=== PATIENT | female | born 1985 ===

== ENCOUNTER 2024-09-09 14:54 | Outpatient (REF) | payer OTHER, SELFPAY ==
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
--- OUTSIDE RECORDS SUMMARY | 2024-09-09 18:22 | XMS_ITS | Encounter Summary ---
Author Organization [employer] Address [address] [place] [address] Care Team Providers Care Barn Manager Name Role Phone Jannie Grover MD Primary Care Provide r Reason for Visit * Reason Comments Med Refill Encounter Details Date Type Department Care Team ([facility] st Contact Info) Description 06/08/2024 Refill [facility] [address] [place], [place] [phone] Jannie Grover MD [address] [place], [place] [phone] Primary hypertension Social History Tobacco Use Types Packs/Day Years Used Date Smoking Tobacco: Every Day Cigarettes Passive Smoke Exposure: Current Smokeless Tobacco: Never Alcohol Use Standard Drinks/Week Comments Yes 0 (1 standard drink = 0.6 oz pur e alcohol) oca Depression Answer Date Recorded Patient Health Questionnaire-9 Score 9 06/10/2023 Patient Health Questionnaire-9 Score 9 06/10/2023 Last PHQ-9: Questionnaire Data Not on file 1 08/10/2022 Housing Stability Answer Date Recorded What is your housing situation today? I have andrea keating 05/27/[address] you li ve. Do you have problems with any of the following? None of the above 05/27/2023 Food Insecurity Answer Date Recorded Within the past 12 months, y ou worried that your food would run out before you got money to buy more: Never True 05/27/2023 Within the past 12 months,th e food you bought just didn't last and you didn't have enough money to get more: Never True Transportation Answer Date Recorded In the past 12 months, has l ack of transportation kept you from medical appts, meetings, work or from getting things needed for daily living? No 05/27/2023 Utilities Answer Date Recorded In the past 12 months, has t he electric, gas, oil or water company threatened to shut off services in your home? No 05/27/2023 Depression Answer Date Recorded Patient Health Questionnaire-2 Score 2 06/10/2023 Internet Access Answer Date Recorded Internet Access Q1 Yes 04/08/2024 Internet Access Q2 Not on file 04/08/2024 Comments Unknown Sex and Gender Information Value Date Recorded Sex Assigned at Female 05/13/2022 10:14 AM EDT Legal Sex Female 10:14 AM EDT Gender Identity Female 05/13/2022 10:14 AM EDT Sexual Orientation Choose not to disclose 2021 10:14 AM EDT documented as of this encounter Plan of Treatment Upcoming Encounters Date Type Department Care Team (Late st Contact Info) Description 09/22/2024 10:15 AM EDT Office Visit [facility] [address] [place] [id number] Jannie Grover MD [address] [place] [phone] documented as of this encounter Visit Diagnoses Diagnosis Primary hypertension Unspecified essential hypertension documented in this encounter Additional Health Concerns Assessment Noted Time PHQ-9 Depression Total Score: 9 06/10/20 23 9:05 AM EST documented as of this encounter Care Teams Barn Manager Relationship Specialty Start Date End Date Jannie Grover MD [address] [place] [phone] PCP - General Family Medicine 08/24/20 documented as of this encounter
--- OUTSIDE RECORDS SUMMARY | 2024-09-09 18:22 | XMS_ITS | Encounter Summary ---
Author Organization [employer] Address [address] [place] [address] Care Team Providers Care Typing Teacher Name Role Phone Jannie Grover MD Primary Care Provide r Encounter Details Date Type Department Care Team (Late st Contact Info) Description 08/04/2024 Orders Only [facility] [address] [place] [address] Yesenia Miranda Social History Tobacco Use Types Packs/Day Years Used Date Smoking Tobacco: Every Day Cigarettes Passive Smoke Exposure: Current Smokeless Tobacco: Never Alcohol Use Standard Drinks/Week Comments Yes 0 (1 standard drink = 0.6 oz pur e alcohol) oca Depression Answer Date Recorded Patient Health Questionnaire-9 Score 9 06/16/2024 Patient Health Questionnaire-9 Score 9 06/16/2024 Last PHQ-9: Questionnaire Data Not on file 1 08/17/2023 Housing Stability Answer Date Recorded What is [...] Answer Date Recorded Patient Health Questionnaire-2 Score 4 06/16/2024 Internet Access Answer Date Recorded Internet Access [...] Description 09/22/2024 10:15 AM EDT Office Visit [facility] [address] [place], [place] [phone] Jannie Grover MD [address] [place] [address] documented as of this encounter Procedures Procedure Name Priority Date/Time Associated Diagnosis Comments PAP/HPV Routine 12/11/2023 12:00 AM EDT documented in this encounter Results * HM PAP/HPV (12/11/2023 12:00 AM EDT) Pap Smear 1. NILM 1. NILM HPV Not Detected Undetected, Indeterminat e, Quantitative , Not Detected Historical Provider HEALTH MAINTENANCE Edited Result - Final documented in this encounter Visit Diagnoses Not on filedocumented in this encounter Additional Health Concerns Assessment Noted Time PHQ-9 Depression Total Score: 9 06/16/20 24 11:29 AM EST documented as of this encounter Care Teams Typing Teacher Relationship Specialty Start Date End Date Jannie Grover MD [address] [place], [place] [phone] PCP - General Family Medicine 08/24/20 documented as of this encounter
--- OUTSIDE RECORDS SUMMARY | 2024-09-09 18:22 | XMS_ITS | Clinical Summary ---
Author Organization [employer] Address [address] [facility] 7t [place] [address] Care Team Providers Care Graphic Production Artist Name Role Phone Jannie Grover MD Primary Care Provide r Allergies Active Allergy Reactions Criticality Noted Date Comments Bee Venom 11/22/2019 Other reaction(s): Rash, Rash Penicillins Anaphylaxis High 01/20/2012 Medications * This document contains information received from the source organization and may not represent a complete record from that organization. EPINEPHrine (Epipen) 0.3 MG/0.3ML injection syringeIndicatio ns:Allergy to bee sting Inject 0.3 mL (0.3 mg) as directed 1 (one) time if needed for anaphylaxis for up to 2 doses. Inject into upper leg. Call 911 after use. 1 each 1 10/15/19 24 Active cholecalciferol (Vitamin D-3) 25 MCG (1000 UT) tabletIndication s:Vitamin D deficiency Take 1 tablet (25 mcg) by mouth in the morning. 60 tablet 1 10/15/19 24 Active Blood Pressure Monitoring (Blood Pressure Cuff) miscIndications: Temporary high blood pressure 1 each Once daily. 1 each 10/15/19 24 Active Semaglutide-Weig ht Management (Wegovy) 0.25 MG/0.5ML solution auto-injectorInd ications:Class 3 severe obesity due to excess calories with serious comorbidity and body mass index (BMI) of 45.0 to 49.9 in adult ([facility]) Inject 0.25 mg under the skin 1 (one) time per week. 0.5 mL 04/16/20 24 Active albuterol 108 (90 Base) MCG/ACT inhalerIndicatio ns:Mild intermittent asthma, unspecified whether complicated Inhale 2 puffs every 6 (six) hours if needed for wheezing. 18 g 1 04/16/20 24 025 Active amLODIPine (Norvasc) 10 MG tabletIndication s:Primary hypertension Take 1 tablet (10 mg) by mouth Once per day. 90 tablet 05/21/20 24 Active Semaglutide-Weig ht Management (Wegovy) 0.25 MG/0.5ML solution auto-injectorInd ications:Class 3 severe obesity with serious comorbidity and body mass index (BMI) of 45.0 to 49.9 in adult, unspecified obesity type (CMS/HCC) Inject 1 mL (0.5 mg) under the skin 1 (one) time per week. 4 mL 05/21/20 24 Active Semaglutide-Weig ht Management (Wegovy) 1 MG/0.5ML solution auto-injectorInd ications:Class 3 severe obesity due to excess calories with serious comorbidity and body mass index (BMI) of 45.0 to 49.9 in adult (CMS/HCC) Inject 0.5 mL (1 mg) under the skin 1 (one) time per week. 2 mL 06/15/20 24 Active triamcinolone (Kenalog) 0.1 % creamIndications :Eczema, unspecified type Apply topically if needed in the morning and at bedtime (pain and swelling). 30 g 2 06/15/20 24 Active Semaglutide-Weig ht Management (Wegovy) 2.4 MG/0.75ML solution auto-injector INJECT ONE PEN (=2.4 MG) SUBCUTANEOUSLY ONCE A WEEK 3 mL 07/06/20 24 Active loratadine (Claritin) 10 MG tabletIndication s:Allergic rhinitis, unspecified seasonality, unspecified trigger TAKE 1 TABLET BY MOUTH EVERY DAY 90 tablet 1 07/08/20 24 Active ARIPiprazole (Abilify) 10 MG tabletIndication s:Mood disorder (CMS/HCC) Take 1 tablet (10 mg) by mouth Once per day. 30 tablet 1 07/22/19 25 025 Active hydrOXYzine HCl (Atarax) 25 MG tabletIndication s:Mood disorder (CMS/HCC) Take 1 tablet (25 mg) by mouth if needed in the morning and at bedtime for anxiety. 30 tablet 1 07/22/19 25 Active ibuprofen 800 MG tabletIndication s:Acute pain of left shoulder,Neck pain Take 1 tablet (800 mg) by mouth every 8 (eight) hours if needed for mild pain for up to 10 days. 30 tablet 09/09/19 25 025 Active cyclobenzaprine (Flexeril) 10 MG tabletIndication s:Acute pain of left shoulder,Neck pain Take 0.5 tablets (5 mg) by mouth 3 times daily for 20 days. 30 tablet 09/09/19 25 025 Active lidocaine (Lidoderm) 5 % patchIndications :Acute pain of left shoulder,Neck pain Apply 1 patch topically Once per day. Remove & discard patch within 12 hours or as directed by MD. 30 patch 09/09/19 Active Active Problems Problem Noted Date Diagnosed Date Acute pain of left shoulder 2024 Neck pain 2024 Assessment & Plan (2024 2:45 PM EST): Apply heat on affected area Encounter for preventive care 06/16/2024 Assessment & Plan (06/16/2024 4:34 PM EST): See HPI Eczema 06/15/2024 Primary hypertension 04/16/2024 Assessment & Plan (06/16/2024 4:32 PM EST): See below: - Aerobic exercise to reduce BP. Initial goal of 30 min walk 3-5x/week. Increase as tolerated. - low-sodium diet (goal: <2g/day) and heart healthy diet such as DASH to reduce BP and prevent ASCVD. - Home BP monitoring 1-2 x day with goal of <140/90. - Seek immediate medical attention for chest pain, palpitations, SOB, syncope, or sudden changes in mental status. - Do not change or discontinue current prescriptions without first consulting health care provider Assessment & Plan (05/21/2024 10:40 AM EST): I will increase her amlodipine to 10mg daily I advise weight reduction and low Na diet Bring machine or log again for next visit RTC 6 weeks Assessment & Plan (04/16/2024 4:32 PM EDT): I change her blood pressure medication ( I discontinue hydrochlorothiazide and I started her on amlodipine 5mg daily) I advise low Na diet and weight reduction Class 3 severe obesity due t o excess calories with serious comorbidity and body mass index (BMI) of 45.0 to 49.9 in adult 04/16/2024 Assessment & Plan (06/16/2024 4:32 PM EST): Patient is doing well on wegovy, she has lost 7lbs since last appointment Assessment & Plan (04/16/2024 4:32 PM EDT): I will start patient on wegovy RTC 4 weeks Allergy to bee sting 10/15/2023 Temporary high blood pressure 10/15/2023 Assessment & Plan (10/15/2023 4:32 PM EDT): Today blood pressure is high I advise low Na diet weight reduction BP cuff prescribed monitor BP at home and bring log for nurse visit in 2 weeks plan is if BP not at goal to start her on hydrochlorothiazide 12.5mg daily Encounter for preventive health examination 05/15 Assessment & Plan (06/10/2023 9:43 AM EST): Discussed with patient re increase fresh fruit and vegetable intake. Counseled re moderate exercise as tolerated, up to 20min/d Patient feels safe at home. PAP smear apparently up to date, will obtain records of most recent PAP from [facility] Eye exam overdue, will refer to ophthalmology Labs to be ordered Vaccinations TD and Flu given today, advised to have Covid booster at our walk- in Covid IZ clinic. Obtain immunization titers Dental visit overdue, counseled to get dentist appointment [facility] Prediabetes 06/10/2023 Assessment & Plan (10/15/2023 4:32 PM EDT): Today extensive discussion was done about life style modifications I advise healthy diet (low calorie) and cardiovascular exercise Assessment & Plan (06/10/2023 9:44 AM EST): Controlled. Counseled re more frequent low calorie/carb meals. Encouraged physical activity as tolerated. FU in 2 m w/ PCP. Dietary counseling 06/10/2023 Assessment & Plan (06/10/2023 9:44 AM EST): We discussed about wt reduction and continue going to the gym She will discuss with PCP about wt management surgery, not ready at this time Exercise counseling 06/10/2023 PADILLA (obstructive sleep apnea) 06/10/2023 Assessment & Plan (06/10/2023 9:45 AM EST): Reportedly had mild sleep apnea (?) followed by pulmonary, results of test not available Counseled to continue wt reduction De Quervain's tenosynovitis, right 06/10/2023 Assessment & Plan (06/10/2023 9:46 AM EST): Not improved w/ conservative Tx Refer to OT and get x-rays Acute low back pain 06/04/2023 06/04/2023 Cardiac arrhythmia 06/04/2023 06/04/2023 Mixed anxiety and depressive disorder 06/04/2023 06/04/2023 Precordial pain 06/04/2023 06/04/2023 Mood disorder 06/04/2023 06/04/2023 Assessment & Plan (05/21/2024 10:41 AM EST): Counseling done [facility] referral I will put her on hydroxyzine PRN Anxiety 01/17/2016 06/04/2023 Allergic rhinitis 01/17/2016 06/04/2023 Mild intermittent asthma 01/17/2016 023 Obsessive-compulsive disorder 01/17/2016 Recurrent major depression 01/17/201606/04 Obesity 01/17/2016 06/04/2023 Assessment & Plan (05/21/2024 10:41 AM EST): C/w kiran, 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 Date Type Department Care Team Description 2024 2:00 PM EST Office Visit [facility] [address] [place] [address] Jannie Grover MD Acute pain of left shoulder; Neck pain 2024 Travel 09/08/2024 Telephone [facility] [address] [place] [address] Jannie Grover MD Nurse Triage 08/04/2024 Orders Only [facility] [address] [place] [address] Ruth, Yesenia 07/08/2024 Refill [facility] [address] [place], [place] [phone] Jannie Grover MD Allergic rhinitis, unspecified seasonality, unspecified trigger 07/05/2024 Refill [facility] [address] [place] [phone] Jannie Grover MD 06/15/2024 9:30 AM EST Office Visit [facility] [address] [place] [address] Jannie Grover MD Primary hypertension (Primary Dx); Class 3 severe obesity due to excess calories with serious comorbidity and body mass index (BMI) of 45.0 to 49.9 in adult (CMS/HCC); Eczema, unspecified type; Encounter for preventive care 06/15/2024 Travel 06/14/2024 Telephone [facility] [address] [place] [address] Peri Dunbar [place] Chart Prep from Last 3 Months Immunizations Name Administration Dates Next Due DTaP 09/24/1990, 0,05/31/1987,05/02,1986 Hep A, ped/adol, 2 dose 05/08/2010,09/19/2009 Hep B, Adolescent or Pediatric 05/16/1998,1996,05/17/1997 IPV 09/24/1990, 0,05/02/1987,11/11 Influenza injectable quadriv alent IIV4 with preservative 06/03/2018,04/04/2016,04/03/2015 Influenza injectable quadriv alent preservative free 06/10/2023,07/05/2021 Influenza, IIV3, injectable 04/21/2014 Influenza, Split (incl. jimmy fied surface antigen) 04/23/2012 MMR 12/27/1994,1989 Pneumococcal Conjugate PCV 20 10/15/2023 Pneumococcal Polysaccharide PPSV23 04/23/2012 TD (adult), 2 Lf tetanus tox oid, preservative free, adsorbed 06/10/2023,12/26/1998 Td (adult), 5 Lf tetanus tox oid, preservative free, adsorbed 01/10/2012 Tdap 09/19/2009 Varicella 12/18/2009,09/19/2009 Family History Medical History Relation Name Comments Heart disease Maternal Grandmother Hypertension Maternal Grandmother Diabetes Mother Relation Name Status Comments Maternal Grandmother Mother Social History Tobacco Use Types Packs/Day Years Used Date Smoking Tobacco: Every Day Cigarettes Passive Smoke Exposure: Current Smokeless Tobacco: Never Tobacco Cessation:Ready to Q uit: Not Asked; Counseling Given: Not Answered Alcohol Use Standard Drinks/Week Comments Yes 0 [...] not to disclose 2021 10:14 AM EDT Last Filed Vital Signs Vital Sign Reading Time Taken Comments Blood Pressure 145/90 2024 2:43 PM EST Pulse 76 2024 2:11 PM EST Temperature 36.6 ??C (97.8 ??F) 2024 2:11 PM ES T Respiratory Rate 20 2024 2:11 PM EST Oxygen Saturation 99% 05/21/2024 9:58 AM EST Inhaled Oxygen Concentration - - Weight 123 kg (271 lb 8 oz) 2024 2:[address] Height 167.6 cm (5' 6 ) 2024 2:11 PM EST Body Mass Index 43.82 2024 2:11 PM EST Plan of Treatment Upcoming Encounters Date Type Department Care Team (Late st Contact Info) Description 09/22/2024 10:15 AM EDT Office Visit [facility] [address] [place] [address] Jannie Grover MD [address] [place] [address] Health Maintenance Due Date Last Done Comments Alcohol/Substance Use Screening 1998 Family Planning (PISQ) 2001 COVID-19 Vaccine ( season) 2024 12/25/2020, 12/04/2020 Influenza Vaccine (#1) 2024 , 07/05/2021, 06/03/2018, Additional history exists Depression Monitoring (PHQ-9) 12/15/2024 06/16/2024, 06/16/2024 SDOH Screening 04/08/2025 04/08/2024 Diabetes: Hemoglobin A1C 04/22/2025 024, 10/15/2023, 06/25/2023, Additional history exists Depression Screening 06/16/2025 06/16/2024, 06/16/20 24 Tobacco Screening 2025 2024 Cervical Cancer Screening 12/10/2028 HPV/Cotest 12/10/2028 12/11/2023, 02/27/2021 Pap Smear 12/10/2028 12/11/2023, 02/27/2021 Lipid Panel 04/22/2029 04/22/2024, 06/13, 07/05/2021, Additional history exists DTaP/Tdap/Td Vaccines (9 - Td or Tdap) 06/10/2033 06/10/2023, 01/10/2012, 09/19/2009, Additional history exists Zoster Vaccines (1 of 2) 2036 RSV Patients and Patients Aged 60 years or older (1 - 1-dose 75+ series) 2061 IPV Vaccines Completed 09/24/1990, 08/15, 05/02/1987, Additional history exists Hepatitis B Vaccines Completed 05/16/1998, 06/28/1997, 05/17/1997 Hepatitis A Vaccines Aged Out 05/08/2010, 09/20/19 10 No longer eligible based on patient's age to complete this topic Pneumococcal Vaccine: Pediatrics (0 to 5 Years) and At-Risk Patients (6 to 49) Years) Completed 10/15/2023, 04/23/2012 HIV Screening Completed 04/22/2024, 06/13, 07/05/2021, Additional history exists Hepatitis C Screening Completed 04/22/2024 , 06/25/2023, 07/05/2021 HIB Vaccines Aged Out No longer eligi ble based on patient's age to complete this topic HPV Vaccines Aged Out No longer eligi ble based on patient's age to complete this topic Meningococcal Vaccine Aged Out No josh venkat eligible based on patient's age to complete this topic RSV under 20 months Aged Out No longe r eligible based on patient's age to complete this topic Rotavirus Vaccines Aged Out No longer eligible based on patient's age to complete this topic Procedures Procedure Name Priority Date/Time Associated Diagnosis Comments HEPATITIS C VIRAL RNA, QUANTITATIVE, REAL-TIME PCR Routine 04/22/2024 10:25 AM EDT Class 3 severe obesity due to excess calories with serious comorbidity and body mass index (BMI) of 45.0 to 49.9 in adult (CMS/HCC) HIV 1/2 ANTIGEN/ANTIBODY, FOURTH GENERATION W/RFL Routine 04/22/2024 10:25 AM EDT Class 3 severe obesity due to excess calories with serious comorbidity and body mass index (BMI) of 45.0 to 49.9 in adult (CMS/HCC) HEMOGLOBIN A1C Routine 04/22/2024 10:25 AM EDT Class 3 severe obesity due to excess calories with serious comorbidity and body mass index (BMI) of 45.0 to 49.9 in adult (CMS/HCC) LIPID PANEL, STANDARD Routine 04/22/2024 10:25 AM EDT Class 3 severe obesity due to excess calories with serious comorbidity and body mass index (BMI) of 45.0 to 49.9 in adult (CMS/HCC) HM PAP/HPV Routine 12/11/2023 12:00 AM EDT from Last 3 Months or Most Recently Relevant to Health Maintenance Results * Hepatitis C Viral RNA, Quantitative, Real-Time PCR (04/22/2024 10:25 AM EDT) Hepatitis C Viral Load <15 NOT DETECTED NOT DETECTED IU/mL [facility] HCV Log PCR <1.18 NOT DETECTED NOT DETECTED Log IU/mL [facility] Comment:For additional infor salo, please refer [email or web address].SpazioDati/faq/YED58t3(This link is being provided for informational/educational purposes only.)THIS TEST WAS PERFORMED AT:[facility] [place] [phone] SUTHERLAND MD Blood Venous blood specimen / Unknown 04/22/2024 10:25 AM EDT 04/22/2024 11:20 AM EDT us Jannie Reyes MD LAB BLOOD ORDERABLES Final Result Performing Organization Address City/[facility]/ZIP Co de Phone Number [facility] [address] [place] [address] [phone] * HIV-1/2 Antigen and Antibodies, Fourth Generation, with Reflexes (04/22/2024 10:25 AM EDT) HIV AB/AG Nonreactive Nonreactive [facility] Comment:HIV-1 p24 Ag and/or HIV-1/HIV-2 Ab not detected.A test result that is nonreactive does not exclude thepossibility of exposure to or infection with HIV-1 and/orHIV-2. Nonreactive results in this assay for individualswith prior exposure to HIV-1 and/or HIV-2 may be due toantigen and antibody levels that are below the limit ofdetection of this assay.The Quick KeyniEasy Vino HIV Ag/Ab Combo assay result andsupplemental assay results should be interpreted inconjunction with the patient's clinical presentation,history and other laboratory results. If the results areinconsistent with clinical evidence, additional testing issuggested to confirm the result. Blood Venous blood specimen / Unknown 04/22/2024 10:25 AM EDT 04/22/2024 11:20 AM EDT us Jannie Reyes MD LAB BLOOD ORDERABLES Final Result Performing Organization Address City/[facility]/ZIP Co de Phone Number [facility] [address] [place] [address] [phone] * Hemoglobin A1c (04/22/2024 10:25 AM EDT) Hemoglobin A1c 5.9 <6.0 % [facility] Comment:Hemoglobin A1C Refer ence Range Adults: 4.8 - 6.0 % Non diabetic: < 6.0 % Goal: < 7.0 %Additional Action Suggested: > 8.0 %Note: Hemoglobin A1c results are invalid for patients with abnormal amounts of HbF. Blood transfusions may impact the HbA1c concentration in the patient sample. Estimated Average Glucose 123 mg/dL [facility] Comment:eAG = Estimated ave rage glucose which is %A1C expressed asaverage glucose, using the formula of the [id number] Glucose study (ADAG), Diabetes Care, Vol.31,#8,Feb. 2007 Blood Venous blood specimen / Unknown 04/22/2024 10:25 AM EDT 04/22/2024 11:20 AM EDT us Jannie Reyes MD LAB BLOOD ORDERABLES Final Result [facility] [address] [place] [phone] * (ABNORMAL) Lipid Panel, Standard (04/22/2024 10:25 AM EDT) Triglycerides 65 <150 mg/dL [facility] Comment:Desirable Triglyceri de: less than 150 mg/dLBorderline High Triglyceride 150-199 mg/dLHigh Triglyceride: 200-499 mg/dLVery High Triglyceride: greater than or equal to 5OO mg/dL Cholesterol 190 <200 mg/dL [facility] Comment:Desirable Cholestero l: less than 200 mg/dLBorderline High Cholesterol: 200-239 mg/dLHigh Cholesterol: greater than 239 mg/dL LDL Cholesterol Calculated 122(H) <100 mg/dL [facility] Comment:Desirable LDL: less than 100 mg/dLNear Optimal/Above Optimal LDL: 110- 129 mg/dLBorderline High LDL: 130-159 mg/dLHigh LDL: 160-189 mg/dLVery High LDL: greater than or equal to 190 mg/dL HDL Cholesterol 55 >40 mg/dL [facility] Comment:Desirable HDL: great er than 40 mg/dL Note: This HDL assay may give artificially low results in patients with liver disease. Blood Venous blood specimen / Unknown 04/22/2024 10:25 AM EDT 04/22/2024 11:20 AM EDT us Jannie Reyes MD LAB BLOOD ORDERABLES Final Result [facility] [address] [place] [phone] [phone] * HM PAP/HPV (12/11/2023 12:00 AM EDT) Pap Smear 1. NILM 1. NILM HPV Not Detected Undetected, Indeterminat e, Quantitative , Not Detected us Historical Provider HEALTH MAINTENANCE Edited Result - Final from Last 3 Months or Most Recently Relevant to Health Maintenance Insurance [address] [place], [place] [address]Kwanji C3 Care Teams Graphic Production Artist Relationship Specialty Start Date End Date Jannie Grover MD [address] [place] [address] PCP - General Family Medicine 08/24/20
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
--- OUTSIDE RECORDS SUMMARY | 2024-09-09 18:23 | XMS_ITS | Encounter Summary ---
Author Organization [email or web address] Address [address] [facility] [address] [place] [address] Care Team Providers Care Hooker Machine Tender Name Role Phone Jannie Grover MD Primary Care Provide Encounter Details Date Type Department Care Team (Latest Contact Info) Description 2024 Travel Social History Tobacco Use Types Packs/Day Years [...] Description 09/22/2024 10:15 AM EDT Office Visit [facility] [address] [place] [address] Jannie Grover MD [address] [place] [address] documented as of this encounter Visit Diagnoses Not on filedocumented in this encounter Additional Health Concerns Assessment Noted Time PHQ-9 Depression Total Score: 9 06/16/20 24 11:29 AM EST documented as of this encounter Care Teams Hooker Machine Tender Relationship Specialty Start Date End Date Jannie Grover MD [address] [place] [phone] PCP - General Family Medicine 08/24/20 documented as of this encounter
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
--- OUTSIDE RECORDS SUMMARY | 2024-09-09 18:23 | XMS_ITS | Clinical Summary ---
[facility] Address [address] [place] [address] Care Team Providers Care Auger Press Operator Name Role Phone CooperKinzafady BHATIA Primary Care Provider [phone] Medical History Medical History Date Comments Anxiety state DX:Anxiety state Asthma DX:Asthma Vitamin D insufficiency 12/24/2012 DX:Vitam in D insufficiency; COMMENT: Vitamin D = 21 History of vitamin D deficiency 02/03/2014 DX:History of vitamin D deficiency; COMMENT: Vitamin D = 17 Depression DX:Depression History of chlamydia 10/10/2006 DX:History of chlamydia History of gonorrhea 2005 DX:History of gonorrhea Family History Medical History Relation Name Comments Other cancer Aunt Blood Other: Blood disorder Brother x1 Diabetes Father Diabetes Maternal Grandmother Hypertension Maternal Grandmother Asthma Mother Diabetes Mother Hypertension Mother Breast cancer Neg Hx Ovarian cancer Neg Hx Uterine cancer Neg Hx Relation Name Status Comments Aunt Alive Brother x1 Alive Father Alive Maternal Grandfather Maternal Grandmother Mother Alive Paternal Grandfather Paternal Grandmother Sister x4 Alive Social History Tobacco Use Types Packs/Day Years Used Date Smoking Tobacco: Light Smoker Cigarettes Smokeless Tobacco: Never Alcohol Use Standard Drinks/Week Comments Yes 0 (1 standard drink = 0.6 oz pur e alcohol) Comments Unknown Sex and Gender Information Value Date Recorded Sex Assigned at Not on file Legal Sex Female 3:51 AM EST Gender Identity Not on file Sexual Orientation Not on file Obstetrics History Last Filed Vital Signs Vital Sign Reading Time Taken Comments Blood Pressure 122/84 12/11/2023 11:19 AM EDT Pulse 82 12/11/2023 11:19 AM EDT Temperature - - Respiratory Rate - - Oxygen Saturation - - Inhaled Oxygen Concentration - - Weight 128 kg (283 lb) 12/11/2023 11:19 AM EDT Height 167.6 cm (5' 6 ) 12/11/2023 11:19 AM EDT Body Mass Index 45.68 12/11/2023 11:19 AM EDT Plan of Treatment Health Maintenance Due Date Last Done Comments DTaP,Tdap,and Td Vaccines (1 - Tdap) 2005 Hepatitis B Vaccines (1 of 3 - 19+ 3-dose series) 2005 Pneumococcal Vaccine: Pediatrics (0 to 5 Years) and At-Risk Patients (6 to 64 Years) (1 of 2 - PCV) 2005 Cholesterol Screening (Lipid Panel) 06/22/2022 Depression Screening 06/22/2022 Hepatitis C Screening 06/22/2022 Social Influencers of Health Screening 06/22/2022 Hypertension/CHF/CAD Annual BMP Blood Test 02/06/2024 COVID-19 Vaccine ( - 2023-2 5 season) 2024 Influenza Vaccine (#1) 2024 Cervical Cancer Screening: P ap Smear 12/10/2026 12/11/2023, 02/20/2021, 04/15/2018 HIV Screening Completed 12/11/2023 HIB Vaccines Aged Out No longer eligi ble based on patient's age to complete this topic HPV Vaccines Aged Out No longer eligi ble based on patient's age to complete this topic Hepatitis A Vaccines Aged Out No long er eligible based on patient's age to complete this topic IPV Vaccines Aged Out No longer eligi ble based on patient's age to complete this topic MMR Vaccines Aged Out No longer eligi ble based on patient's age to complete this topic Meningococcal ACWY Vaccine Aged Out N o longer eligible based on patient's age to complete this topic Meningococcal B Vacine Aged Out No lo nger eligible based on patient's age to complete this topic RSV Immunization Patients Under 20 months Aged Out No longer eligible b ased on patient's age to complete this topic Varicella Vaccines Aged Out No longer eligible based on patient's age to complete this topic Procedures Procedure Name Priority Date/Time Associated Diagnosis Comments PAP SMEAR Routine 12/11/2023 from Last 3 Months or Most Recently Relevant to Health Maintenance Results * Pap smear (12/11/2023) 12/11/2023 Narrative HISTORICAL TESTING LAB RESULTING AGENCY - 12/17/2023 4:15 PM EDT [id number] THINPREP PAP, IMAGED: NEGATIVE FOR SQUAMOUS INTRAEPITHELIAL LESION AND MALIGNANCY. SHIFT IN DONALD, SUGGESTIVE OF BACTERIAL VAGINOSIS. GRAHAM MORALES(ASCP) (CASE ELECTRONICALLY SIGNED 12 17 2023) RESULT OF APTIMA HIGH RISK HPV ASSAY: HIGH RISK HPV: ??NEGATIVE (SEROTYPES 16,18,31,33,35,39,45,51,52,56,58,59,66,68) COMPLETED ON 2023-12-15 ADEQUACY: SATISFACTORY ENDOCERVICAL/TRANSFORMATION ZONE COMPONENT PRESENT. SOURCE: THINPREP PAP HPV ANY DX: ??REFLEX 16 AND 18, CERVICAL, IMAGED CLINICAL INFORMATION: HPV ANY DIAGNOSIS. HORMONES, PAP HX 2020 ASCUS/HPV NEG, LMP 11/14/2023, [[id number]] us Daily Sanders [facility] LAB CYTOLOGY ORDERABLES Final Result HISTORICAL TESTING LAB RESULTING AGENCY from Last 3 Months or Most Recently Relevant to Health Maintenance Care Teams Auger Press Operator Relationship Specialty Start Date End Date Viviana Gamboa NP [address] [place] [id number] PCP - General 05/12/08
== END 2024-09-09 14:55 | disposition home or self-care (01) ==
LOC: HO.HHCX 14:54
PROVIDERS: Visit Provider Internal Medicine
DX: M25.512 Pain in left shoulder (principal); M54.2 Cervicalgia
CPT/HCPCS: 72050; 73030

== ENCOUNTER → 2024-09-09 15:04 | Outpatient (BNV) | payer OTHER, SELFPAY | PROVIDERS: Visit Provider Radiology Diagnostic Radiology | DX: Z03.89 Encounter for observation for other suspected diseases and conditions ruled out (principal) | CPT/HCPCS: 72050; 73030 ==